=== PATIENT | male | born 1995 | race Caucasian/White ===

== ENCOUNTER → 2023-12-29 13:38 | Outpatient (BNVA) | payer OTHER, SELFPAY | PROVIDERS: Visit Provider Physician Assistant Medical | DX: M54.50 Low back pain, unspecified (principal); M25.472 Effusion, left ankle; S90.02XA Contusion of left ankle, initial encounter; W11.XXXA Fall on and from ladder, initial encounter | CPT/HCPCS: 72110; 73610; 73620; 74176; 99203 ==

== ENCOUNTER 2023-12-29 16:21 | Emergency (ER) | payer OTHER, SELFPAY ==
--- NOTE | ~2023-12-29 | CT_ITS ---
EXAM: CT HEAD WITHOUT CONTRAST CT CERVICAL SPINE INDICATION: Fall TECHNIQUE: A noncontrast CT scan was performed from the skull base to the vertex. A noncontrast CT scan of the cervical spine was performed from the base of the skull through T1 at 2.5 mm and 0.625 mm collimation. Coronal and sagittal reformats were obtained at the acquisition workstation. This CT examination was performed using dose optimization techniques as appropriate, variously including the following: * Automated exposure control * Adjustment of mA and/or kV according to patient size (this includes techniques or standardized protocols for targeted exams where dose is matched to indication/reason for exam; i.e. extremities or head) * Use of iterative reconstruction technique Dose length product is 418 mGy-cm. COMPARISON: None FINDINGS: Head: There is no evidence of acute intracranial hemorrhage or edematous large vessel territorial infarction. No abnormal mass effect or midline shift is seen. No abnormal extra-axial fluid collections are identified. Scattered areas of heterogeneous attenuation such as in the frontal lobes, bilateral parietotemporal lobes. This could be related to technical factors, beam hardening artifact/ motion artifact. The ventricles are normal in size. No acute calvarial fracture.. Paranasal sinuses and mastoid air cells are well-aerated. Cervical Spine: The atlantooccipital and atlantoaxial articulation is maintained.. Vertebral body alignment is maintained. Predens space is maintained. Vertebral body heights are maintained. No evidence of acute fracture or traumatic subluxation.. Disc spaces are maintained. The central bony canal is maintained. No prevertebral soft tissue swelling. No acute findings in lung apices. CT/CT cervical spine wo IV con IMPRESSION: No CT evidence of acute intracranial hemorrhage or edematous territorial infarction. Scattered areas of heterogeneous attenuation in the brain, of uncertain etiology. This could be related to technical factors. Clinically correlate. Further evaluation with CTA head or MRI as clinically indicated. Alternately, consider short-term follow-up CT for reassessment as clinically indicated. No CT evidence of acute cervical spine fracture or malalignment. Electronically signed by: Kirk Goldberg MD 12/29/2023 08:01 PM [facility]
--- NOTE | ~2023-12-29 | CT_ITS ---
EXAMINATION: CT CHEST WITHOUT CONTRAST CLINICAL INFORMATION: Fall COMPARISON: None available. TECHNIQUE: Multidetector volumetric CT imaging of the chest was done. Axial MIP volume rendering provided. Sagittal and coronal reformatted images were obtained. This CT examination was performed using dose optimization techniques as appropriate, variously including the following: *Automated exposure control *Adjustment of mA and/or kV according to patient size (this includes techniques or standardized protocols for targeted exams where dose is matched to indication/reason for exam; i.e. extremities or head) *Use of iterative reconstruction technique DLP: 376 mGy-cm FINDINGS: LUNGS: The lungs are clear with no evidence of inflammation or nodules. MEDIASTINUM: The mediastinum is normal. CORONARY ARTERY CALCIFICATION: None visualized on this study. PLEURA: There is no pleural effusion. No pleural mass or thickening. AXILLA: No lymphadenopathy. UPPER ABDOMEN: Wedge-shaped right hepatic hypodensity is consistent with contusion. OSSEOUS STRUCTURES: Unremarkable. CT/CT chest wo IV con IMPRESSION: Unremarkable examination. See separately dictated report for abdomen/pelvic findings. Fleischner guidelines were followed. Electronically signed by: Rodney Castro DO 12/29/2023 09:56 PM EST
--- NOTE | ~2023-12-29 | CT_ITS ---
EXAM: CT HEAD WITHOUT CONTRAST CT CERVICAL SPINE INDICATION: Fall TECHNIQUE: A noncontrast CT scan was performed from the skull base to the vertex. A noncontrast CT scan of the cervical spine was performed from the base of the skull through T1 at 2.5 mm and 0.625 mm collimation. Coronal and sagittal reformats were obtained at the acquisition workstation. This CT examination was performed using dose optimization techniques as appropriate, variously including the following: * Automated exposure control * Adjustment of mA and/or kV according to patient size (this includes techniques or standardized protocols for targeted exams where dose is matched to indication/reason for exam; i.e. extremities or head) * Use of iterative reconstruction technique Dose length product is 418 mGy-cm. COMPARISON: None FINDINGS: Head: There is no evidence of acute intracranial hemorrhage or edematous large vessel territorial infarction. No abnormal mass effect or midline shift is seen. No abnormal extra-axial fluid collections are identified. Scattered areas of heterogeneous attenuation such as in the frontal lobes, bilateral parietotemporal lobes. This could be related to technical factors, beam hardening artifact/ motion artifact. The ventricles are normal in size. No acute calvarial fracture.. Paranasal sinuses and mastoid air cells are well-aerated. Cervical Spine: The atlantooccipital and atlantoaxial articulation is maintained.. Vertebral body alignment is maintained. Predens space is maintained. Vertebral body heights are maintained. No evidence of acute fracture or traumatic subluxation.. Disc spaces are maintained. The central bony canal is maintained. No prevertebral soft tissue swelling. No acute findings in lung apices. CT/CT head/brain wo IV con IMPRESSION: No CT evidence of acute intracranial hemorrhage or edematous territorial infarction. Scattered areas of heterogeneous attenuation in the brain, of uncertain etiology. This could be related to technical factors. Clinically correlate. Further evaluation with CTA head or MRI as clinically indicated. Alternately, consider short-term follow-up CT for reassessment as clinically indicated. No CT evidence of acute cervical spine fracture or malalignment. Electronically signed by: Kirk Goldberg MD 12/29/2023 08:01 PM [facility]
[2023-12-29 17:07] VITALS: BP 123/83; PULSE 82; RESP 16; TEMP 36.1; O2SAT 96; BMI 24.3
--- NOTE | 2023-12-29 17:14 | ED.GENADULT ---
HPI - General Adult General Chief complaint: Fall Stated complaint: fell off ladder c/o back and ankle pain -work inj Time Seen by Provider: 12/29/23 17:26 Related Data Allergies Allergy/AdvReac Type Severity Reaction Status Date / Time No Known Allergies Allergy Verified 12/29/23 17:09 [facility] Social History Social History Advance Directives: No Advance Directives Information Provided: No Physical Exam ED Vital Signs: Vital Signs - 24 hr 12/29/23 17:07 12/29/23 17:39 12/29/23 18:25 Temperature 97.0 F 98.6 F Pulse Rate 82 82 68 Respiratory Rate 16 12 10 L Blood Pressure 123/83 131/82 131/82 Pulse Oximetry 96 96 100 Oxygen Delivery Method Room Air Room Air BMI result Body Mass Index 24.3 Course Course Course Narrative: RME: 28-year-old male presents to ED for falling onto the ladder from 10 ft. Patient was seen at work connection and had abdominal CT scan ordered which showed liver leg but no head CT scan. Patient to be brought to the ED immediately. Medical Decision Making Lab Data 12/29/23 17:37 12/29/23 17:36 Labs: Lab Results 12/29/23 12/29/23 Range/Units 17:36 17:37 WBC 15.0 H (4.8-10.8) X10*3/uL RBC 5.48 (4.60-5.80) X10*6/uL Hgb 15.3 (14.0-18.0) g/dl Hct 46.6 (42.0-52.0) % MCV 85.0 (80.0-98.0) fL MCH 27.9 (27.0-33.0) pg MCHC 32.8 (31.0-36.0) g/dl RDW 13.1 (11.0-16.0) % Plt Count 292 (160-400) X10*3/uL MPV 10.0 (9.4-12.4) fL Immature Gran % (Auto) 0.5 H (0.0-0.4) % Neut % (Auto) 62.8 (45-73) % Lymph % (Auto) 25.0 (20-40) % Lane % (Auto) 8.3 (2-11) % Eos % (Auto) 2.7 (0-4) % Baso % (Auto) 0.7 (0-2) % Lymph # (Auto) 3.8 (1.2-4.9) X10*3/uL Lane # (Auto) 1.2 (0.1-1.2) X10*3/uL Eos # (Auto) 0.4 (0.0-0.4) X10*3/uL Baso # (Auto) 0.1 (0.0-0.2) X10*3/uL Abs Immat Gran (auto) 0.07 H (0.00-0.03) X10*3/uL Absolute Neuts (auto) 9.4 H (2.0-8.3) x10*3/uL Absolute Nucleated RBC 0.000 (0.0-0.012) X10*3/uL Nucleated RBC % (auto) 0.0 (0.0-0.2) /100WBC Sodium 141 (135-145) mmol/L Potassium 4.1 (3.3-5.1) mmol/L Chloride 107 (96-108) mmol/L Carbon Dioxide 26 (22-29) mmol/L Anion Gap 12 (12-20) BUN 17 H (9-16) mg/dL Creatinine 0.96 (0.5-1.4) mg/dL Estim Creat Clear Calc 112.8 Estimated GFR > 60 Random Glucose 86 (60-115) mg/dL Calcium 9.6 (8.4-10.2) mg/dL Total Bilirubin 0.2 (0.0-1.0) mg/dL AST 37 (5-37) U/L ALT 52 H (0-40) U/L Alkaline Phosphatase 51 (39-117) U/L Total Protein 7.9 (6.5-8.0) g/dL Albumin 4.8 (3.5-5.0) g/dL Blood Type A Negative Antibody Screen NEGATIVE Discharge Plan Discharge Clinical Impression: Liver laceration Patient Disposition: [facility] Print Language: Turkish
--- NOTE | 2023-12-29 17:27 | ED.FALL ---
HPI - Fall General Chief Complaint: Fall Stated Complaint: fell off ladder c/o back and ankle pain -work inj Time Seen by Provider: 12/29/23 17:26 History of Present Illness HPI Narrative: PATIENT IS A 28-YEAR-OLD MALE WITH A HISTORY OF accidental fall from a 10 ft ladder. Subsequently landed on his back. Complaining of pain to the lower back area. Was seen at [facility] connection. Subsequently had a CT scan done. The CT was positive for having a 6 cm liver laceration. There is no dizziness no lightheadedness no head injury no neck pain. Also had some pain to the left ankle area. Patient from work. Related Data Allergies Allergy/AdvReac Type Severity Reaction Status Date / Time No Known Allergies Allergy Verified 12/29/23 17:09 Review of Systems Review of Systems: Positive fall complaining of back pain. No nausea no vomiting. No dizziness no focal weakness Yes all other systems are reviewed and are negative [facility] Past Medical History Attestation statement: The following information was validated with the patient. Physical Exam Vital Signs: Vital Signs: Last Vital Signs Temp 97.0 F 12/29/23 17:07 Pulse 82 12/29/23 17:39 Resp 12 12/29/23 17:39 BP 131/82 12/29/23 17:39 Pulse Ox 96 12/29/23 17:39 O2 Del Method Room Air 12/29/23 17:39 BMI result Body Mass Index 24.3 Appearance: Alert. Oriented X3. No acute distress. Eyes: Pupils equal, round and reactive to light. ENT: Pharynx normal. There is no posterior C-spine tenderness elicited on palpation. Trachea is midline. Neck: Normal inspection. Neck supple. No lymph nodes noted. No crepitus CVS: Normal heart rate and rhythm. Pulses normal. Normal S1 and S2 Respiratory: No respiratory distress. Breath sounds normal. No Wheezing. No rales Abdomen: Soft and nontender. No rigidity. No distention. good BS x4 Skin: Skin warm and dry. Normal skin color. Normal skin turgor. Extremities: No lower extremity edema. Neurovascular intact to all extremities. No Lacerations. No Rash Neuro: Oriented X 3. No motor deficit. No sensory deficit. Moving all extermities. No slurred speech Medical Decision Making Medical Decision Making MDM Narrative: Patient's vital signs are stable. CT scan of the abdomen pelvis was done. It was positive for a 6 cm laceration in the liver. There is no subcapsular hematoma. Patient not on blood thinners. Hemodynamically stable. Case discussed with surgery here at [facility]. [place] patient is a trauma case wants patient to be transferred. Case discussed with [facility] for transfer accepted. Explained to patient risks and benefits of transfer accepted. Case discussed with surgeon at [facility] accepted patient. Differential Diagnosis Differential Diagnoses: The differential diagnosis associated with the presentation includes Liver laceration, intra-abdominal injury, solid organ injury Admission/Observation Consideration of admission/observation: Escalation of care including admission/observation considered Consult Healthcare Provider Management of the patient was discussed with: [employer] (Surgery and [facility] transfer service) Lab Data MDM Lab Attestation statement: I reviewed the patient's lab results. 12/29/23 17:37 12/29/23 17:36 Labs: Lab Results 12/29/23 Range/Units 17:37 WBC 15.0 H (4.8-10.8) X10*3/uL RBC 5.48 (4.60-5.80) X10*6/uL Hgb 15.3 (14.0-18.0) g/dl Hct 46.6 (42.0-52.0) % MCV 85.0 (80.0-98.0) fL MCH 27.9 (27.0-33.0) pg MCHC 32.8 (31.0-36.0) g/dl RDW 13.1 (11.0-16.0) % Plt Count 292 (160-400) X10*3/uL MPV 10.0 (9.4-12.4) fL Immature Gran % (Auto) 0.5 H (0.0-0.4) % Neut % (Auto) 62.8 (45-73) % Lymph % (Auto) 25.0 (20-40) % [place] % (Auto) 8.3 (2-11) % Eos % (Auto) 2.7 (0-4) % Baso % (Auto) 0.7 (0-2) % Lymph # (Auto) 3.8 (1.2-4.9) X10*3/uL [place] # (Auto) 1.2 (0.1-1.2) X10*3/uL Eos # (Auto) 0.4 (0.0-0.4) X10*3/uL Baso # (Auto) 0.1 (0.0-0.2) X10*3/uL Abs Immat Gran (auto) 0.07 H (0.00-0.03) X10*3/uL Absolute Neuts (auto) 9.4 H (2.0-8.3) x10*3/uL Absolute Nucleated RBC 0.000 (0.0-0.012) X10*3/uL Nucleated RBC % (auto) 0.0 (0.0-0.2) /100WBC Independent Interpretation I performed an independent interpretation of an: CT Scan (CT chest abdomen pelvis showed a liver laceration.) Radiology Impression Discussion of test interpretation with radiology: I have reviewed the radiologist's reading. External Record Review Record from [place] reviewed Critical Care Time Critical Care Time Critical Care Time: Yes Total Critical Care Time: 35 Attestation: I have personally provided 35 minutes of critical care time exclusive of time spent on separately billable procedures. ?Time includes review of lab data, radiology results, discussion with consultants, and monitoring for potential decompensation. ?Interventions were performed as documented above Discharge Plan Discharge Clinical Impression: Liver laceration Patient Disposition: [facility] Print Language: Singaporean
[2023-12-29 17:39] VITALS: BP 131/82; PULSE 82; RESP 12; O2SAT 96
--- NOTE | 2023-12-29 17:42 | PC.NURSE ---
patient brought back to ED 22, patient is awake and alert, VSS, resp even and unlabored. patient states he was on a 10ft ladder and fell off, drove self to work connection. patient states he has back pain no abd pain, N/V. 18# placed in the LFA. patient undressed into hospital attire
[2023-12-29 17:43] LABS: MANUAL DIFF FLAG NO
[2023-12-29 17:47] LABS: Basophils Absolute Auto 0.1 X10*3/uL (0.0-0.2); Basophils Percent Auto 0.7 % (0-2); Eosinophils Absolute Auto 0.4 X10*3/uL (0.0-0.4); Eosinophils Percent Auto 2.7 % (0-4); Hematocrit 46.6 % (42.0-52.0); Hemoglobin 15.3 g/dl (14.0-18.0); Imm Gran Abs Auto 0.07 X10*3/uL (0.00-0.03); Imm Gran Pct Auto 0.5 % (0.0-0.4); Lymphocytes Absolute Auto 3.8 X10*3/uL (1.2-4.9); Mean Corpuscular HGB Conc 32.8 g/dl (31.0-36.0); Mean Corpuscular Hemoglobin 27.9 pg (27.0-33.0); Monocytes Absolute Auto 1.2 X10*3/uL (0.1-1.2); Monocytes Percent Auto 8.3 % (2-11); Neutrophils Absolute Auto 9.4 x10*3/uL (2.0-8.3); Neutrophils Percent Auto 62.8 % (45-73); Platelet Count 292 X10*3/uL (160-400); Red Blood Count 5.48 X10*6/uL (4.60-5.80); Red Cell Distribution Width 13.1 % (11.0-16.0)
[2023-12-29 18:01] LABS: Alanine Aminotransferase 52 U/L (0-40); Albumin Level 4.8 g/dL (3.5-5.0); Alkaline Phosphatase 51 U/L (39-117); Anion Gap 12 (12-20); Aspartate Amino Transferase 37 U/L (5-37); Bilirubin Total 0.2 mg/dL (0.0-1.0); Blood Urea Nitrogen 17 mg/dL (9-16); Calcium 9.6 mg/dL (8.4-10.2); Carbon Dioxide 26 mmol/L (22-29); Chloride 107 mmol/L (96-108); Creatinine Clr Calc Pharmacy 112.8; Estimated Glomerular Filt Rate > 60; Glucose Random 86 mg/dL (60-115); Potassium 4.1 mmol/L (3.3-5.1); Sodium 141 mmol/L (135-145); Total Protein 7.9 g/dL (6.5-8.0)
[2023-12-29 18:25] VITALS: BP 131/82; PULSE 68; RESP 10; TEMP 37; O2SAT 100
== END 2023-12-29 19:00 | disposition short-term general hospital (02) ==
LOC: HO.ED 18:48
PROVIDERS: Physician Assistant; Emergency Provider Emergency Medicine Emergency Medical Services; PCP Nurse Practitioner Family
DX: S36.113A Laceration of liver, unspecified degree, initial encounter (principal); W11.XXXA Fall on and from ladder, initial encounter; Y93.89 Activity, other specified; Y92.9 Unspecified place or not applicable; Y99.0 Civilian activity done for income or pay
CPT/HCPCS: 36415; 70450; 71250; 72125; 80053; 85025; 86850; 86900; 86901; 99284; 99285